=== PATIENT | female | born 1970 | race Caucasian/White ===

== ENCOUNTER 2016-04-11 08:43 | Outpatient (CLI) | payer SELFPAY | END 2016-04-11 08:44 | disposition home or self-care (01) | DX: E03.9 Hypothyroidism, unspecified (principal) ==

== ENCOUNTER 2016-04-25 12:29 | Outpatient (CLI) | payer SELFPAY | END 2016-04-25 12:30 | disposition home or self-care (01) | DX: N39.0 Urinary tract infection, site not specified (principal) ==

== ENCOUNTER 2016-07-25 21:08 | Emergency (ER) | payer SELFPAY ==
[2016-07-25] MEDS ORDERED: CEPHALEXIN 250 MG CAPSULE PO STA (21:52)
[2016-07-25] MEDS ORDERED: CEPHALEXIN 250 MG CAPSULE PO ONE (21:54)
== END 2016-07-25 22:15 | disposition home or self-care (01) ==
DX: S61.211A Laceration without foreign body of left index finger without damage to nail, initial encounter (principal); S66.121A Laceration of flexor muscle, fascia and tendon of left index finger at wrist and hand level, initial encounter; W26.8XXA Contact with other sharp object(s), not elsewhere classified, initial encounter; Y93.89 Activity, other specified; Y92.009 Unspecified place in unspecified non-institutional (private) residence as the place of occurrence of the external cause; R03.0 Elevated blood-pressure reading, without diagnosis of hypertension; F17.200 Nicotine dependence, unspecified, uncomplicated
CPT/HCPCS: 12001; 99283; A9270

== ENCOUNTER 2016-07-28 13:51 | Emergency (ER) | payer SELFPAY ==
[2016-07-28] MEDS ORDERED: DEXAMETHASONE 10 MG/ML VIAL PO STA (14:55)
[2016-07-28] MEDS ORDERED: DEXAMETHASONE 10 MG/ML VIAL ONE (15:03)
--- NOTE | 2016-07-28 15:03 | ED Physician Documentation ---
History of Present Illness - Stated complaint Stated Complaint: L LEG NUMBNESS,VERTIGO - Chief complaint Chief Complaint: General - History obtained from History obtained from: Patient, Family - History of Present Illness Timing: Yesterday - Additonal information Additional information: 46 y/o female lacerated her left index finger 4 days ago with injury to the flexor tendon and digital nerve. She was sutured here and has had follow up with the [place] [facility] [place]. She spent most of the day in the car and did a lot of crying with concerns about what was happening to her and concerns about her blood pressure after the warning she received here. She will have a surgery to repair the nerve at some time. She did go to work yesterday and did well there. Today she left work early with multiple complaints. She has some fogginess to her head and some lightheadedness and dizziness. She has had some numbness to the left leg over the distal lateral calf and over the dorsum between the 1st and 2nd toes. She does not have back pain. Review of Systems Constitutional: reports: Fatigue. denies: Fever, Chills Eyes: denies: Decreased vision Ears: denies: Ear pain Nose: reports: Rhinorrhea / runny nose, Congestion, Sinus pressure / pain Throat: denies: Sore throat Cardiac: denies: Chest pain / pressure, Palpitations Respiratory: denies: Dyspnea, Cough GI: denies: Abdominal Pain, Nausea, Vomiting : denies: Dysuria, Frequency Skin: denies: Rash Musculoskeletal: reports: Neck pain. denies: Back pain, Extremity pain Neurologic: reports: Numbness. 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 : None HEENT: None Psych: None Musculoskeletal: None Derm: None - Past Surgical History Past Surgical History: Yes /MECHANICAL DESIGN TECHNICIAN: Tubal ligation, Hysterectomy - Present Medications Home Medications: Ambulatory Orders Medication Instructions Recorded Confirmed Cephalexin [Keflex] 500 mg PO QID #40 capsule 07/25/16 07/28/16 - Allergies Allergies/Adverse Reactions: Allergies Allergy/AdvReac Type Severity Reaction Status Date / Time No Known Drug Allergies Allergy Verified 07/25/16 21:17 - Social History Does the pt smoke?: Yes Smoking Status: Current every day smoker PD ED PE NORMAL - Vitals Vital signs reviewed: Yes (hypertensive) - General General: Alert and oriented X 3, No acute distress, Well developed/nourished, Other (The patient is mildly anxious ) - HEENT HEENT: Atraumatic, PERRL, EOMI, Other (Both TM's are erythematous along the umbo ) - Neck Neck: Supple, no meningeal sign, No bony TTP - Cardiac Cardiac: RRR, No murmur - Respiratory Respiratory: No respiratory distress, Clear bilaterally - Abdomen Abdomen: Soft, Non tender - Back Back: No CVA TTP, No spinal TTP - Derm Derm: Normal color, Warm and dry, No rash - Extremities Extremities: No deformity, No edema, Other (The wound over the left index finger appears to be healing well without signs of inflamation. ) - Neuro Neuro: Alert and oriented X 3, director of enrollment 2-12 intact, Normal speech - Psych Psych: Normal mood, Normal affect Results - Vitals Vitals: Vital Signs - 24 hr 07/28/16 14:01 Temperature 36.6 C Heart Rate 63 Respiratory 20 Rate Blood Pressure 153/92 H O2 Saturation 99 Oxygen O2 Source Room air Procedures - IVC sono (time) 1450 Bedside IVC sono: IVC measures (cm) (1.04), IVC collapsed c insp (cm) (complete) , Dehydration (mild) PD MEDICAL DECISION MAKING - ED course Complexity details: reviewed old records, reviewed results, re-evaluated patient , considered differential, d/w patient, d/w family ED course: 46y/o female with a crying episode 2 days ago and anxiety has multiple complaints and some findings on exam. She has some mild inflammation to the umbo bilaterally and dizziness, she is also mildly dehydrated and has some sciatic symptoms. She is able to hydrate orally and she is given a dose of decadron for the OM and sciatica. She is reassured about her blood pressure and will get it rechecked when she is not under stress. Departure - Departure Disposition: 01 Home, Self Care Clinical Impression: Dehydration Sciatica Qualifiers: Laterality: left Qualified Code(s): M54.32 - Sciatica, left side Eustachian tube dysfunction Qualifiers: Laterality: bilateral Qualified Code(s): H69.83 - Other specified disorders of Eustachian tube, bilateral Condition: Stable Instructions: ED Dehydration, ED Sciatica Follow-Up: Khoa Hernández MD [Primary Care Provider] - Comments: Today in the Emergency Department your blood pressure was elevated. This can happen from the stress of the visit itself, from a current illness or circumstance or from uncontrolled hypertension. If you take blood pressure medications take your usual mediations, have your blood pressure re-checked in an appropriate setting and follow up any elevation with your primary care doctor.
[2016-07-28 15:21] VITALS: BP 115/61
== END 2016-07-28 15:21 | disposition home or self-care (01) ==
LOC: ED 13:51
DX: E86.0 Dehydration (principal); M54.32 Sciatica, left side; H69.83 Other specified disorders of Eustachian tube, bilateral; F17.200 Nicotine dependence, unspecified, uncomplicated
CPT/HCPCS: 99283

== ENCOUNTER 2016-09-21 08:18 | Outpatient (CLI) | payer SELFPAY ==
[2016-09-21 12:46] LABS: BASOPHILS # (AUTO) 0.1 10^3/uL (0.0-0.1); BASOPHILS % (AUTO) 1.3 %; EOSINOPHILS # (AUTO) 0.4 10^3/uL (0.0-0.7); EOSINOPHILS % (AUTO) 5.1 %; HCT - HEMATOCRIT 39.4 % (37.0-47.0); HGB - HEMOGLOBIN 13.3 g/dL (12.0-16.0); LYMPHOCYTES # (AUTO) 1.8 10^3/uL (1.5-3.5); LYMPHOCYTES % (AUTO) 20.8 %; MEAN CORPUSCULAR HGB CONC 33.8 g/dL (32.0-36.0); MEAN CORPUSCULAR VOLUME 94.6 fL (81.0-99.0); MEAN PLATELET VOLUME 8.6 fL (7.9-10.8); MONOCYTES # (AUTO) 0.7 10^3/uL (0.0-1.0); MONOCYTES % (AUTO) 8.3 %; NEUTROPHILS # (AUTO) 5.5 10^3/uL (1.5-6.6); NEUTROPHILS % (AUTO) 64.5 %; NUCLEATED RED BLOOD CELLS AUTO 0.2 /100WBC; RED BLOOD COUNT 4.17 10^6/uL (4.20-5.40); RED CELL DISTRIBUTION WIDTH 13.1 % (12.0-15.0); UNCORRECTED WHITE BLOOD COUNT 8.6 x10^3/uL; WHITE BLOOD COUNT 8.6 x10^3/uL (4.8-10.8)
[2016-09-21 13:56] LABS: ALBUMIN/GLOBULIN RATIO 1.3 (1.0-2.2); BUN - BLOOD UREA NITROGEN 19 mg/dL (6-20); CALCIUM 9.2 mg/dL (8.5-10.3); CARBON DIOXIDE - CO2 22 mmol/L (21-32); CHLORIDE 106 mmol/L (101-111); CHOL/HDL RATIO 4.6 (<4.4); CHOLESTEROL 233 mg/dL; GFR - MDRD 60 (>89); GLUCOSE 92 mg/dL (70-100); HDL CHOLESTEROL 51 mg/dL; POTASSIUM 4.5 mmol/L (3.5-5.0); SODIUM 135 mmol/L (135-145); TOTAL PROTEIN 7.4 g/dL (6.7-8.2); TRIGLYCERIDES 147 mg/dL; VLDL CHOLESTEROL 29 mg/dL
[2016-09-21 14:14] LABS: THYROID STIMULATING HORMONE 4.49 uIU/mL (0.34-5.60)
== END 2016-09-21 08:19 | disposition home or self-care (01) ==
LOC: LAB.N 08:18
PROVIDERS: ATTEND Physician Assistant
DX: E03.9 Hypothyroidism, unspecified (principal); E66.9 Obesity, unspecified
CPT/HCPCS: 36415; 80053; 80061; 84439; 84443; 85025

== ENCOUNTER 2017-05-23 11:30 | Outpatient (CLI) | payer SELFPAY ==
[2017-05-23 19:01] LABS: BILIRUBIN,URINE NEGATIVE (NEGATIVE); GLUCOSE, URINE (UA) NEGATIVE (NEGATIVE); KETONES,URINE (UA) NEGATIVE (NEGATIVE); LEUKOCYTE ESTERASE, URINE TRACE (NEGATIVE); NITRITE,URINE POSITIVE (NEGATIVE); OCCULT BLOOD,URINE MODERATE (NEGATIVE); PROTEIN,URINE NEGATIVE (NEGATIVE); UROBILINOGEN,URINE 0.2 (NORMAL) E.U./dL (NORMAL)
[2017-05-23 19:14] LABS: BACTERIA,URINE Many /HPF (None Seen); CLARITY,URINE CLOUDY (CLEAR); SQUAMOUS EPITHELIAL CELL,UR MANY Squamous (<= Few)
== END 2017-05-23 11:31 ==
LOC: LAB.R 11:30
PROVIDERS: ATTEND Nurse Practitioner
DX: N39.0 Urinary tract infection, site not specified (principal); R30.0 Dysuria
CPT/HCPCS: 81001; 87086

== ENCOUNTER 2017-06-07 08:00 | Outpatient (CLI) | payer SELFPAY ==
[2017-06-07 19:35] LABS: THYROID STIMULATING HORMONE 0.44 uIU/mL (0.34-5.60)
[2017-06-07 19:37] LABS: FREE T4 (FREE THYROXINE) 0.89 ng/dL (0.58-1.64)
== END 2017-06-07 08:01 ==
LOC: LAB.N 08:00
PROVIDERS: ATTEND Family Medicine
DX: E03.9 Hypothyroidism, unspecified (principal)
CPT/HCPCS: 36415; 84439; 84443

== ENCOUNTER 2017-07-12 12:18 | Outpatient (CLI) | payer SELFPAY ==
[2017-07-12] MEDS ORDERED: IOPAMIDOL-300 100 ML VIAL ONE (12:47)
--- NOTE | 2017-07-12 14:15 | CT Report ---
CT IVP: 07/12/2017 CLINICAL INDICATION: Hematuria. TECHNIQUE: Axial CT images of the abdomen and pelvis were obtained prior to and following 100 mL Isovue 300 intravenously, using split bolus technique. COMPARISON: Previous CT 10/18/2008. FINDINGS: Limited evaluation of the lung bases is unremarkable. ABDOMEN: On the unenhanced images, there is no evidence of nephrolithiasis or hydronephrosis. The kidneys demonstrate symmetric uptake and excretion of contrast. There is cortical thinning in the left kidney, likely representing scarring, and a left renal cyst is incidentally noted. No solid renal lesion or collecting system lesion is appreciated. The liver, spleen, pancreas and adrenal glands are unremarkable. The gallbladder is not dilated. No bowel dilatation, free gas, or free fluid is present. No abdominal adenopathy is seen. PELVIS: The distal ureters and urinary bladder appear unremarkable. No pelvic adenopathy or free fluid is present. The appendix is seen in the right lower quadrant, and is normal in caliber. Osseous structures demonstrate degenerative changes. IMPRESSION: LEFT RENAL CORTICAL THINNING, LIKELY REPRESENTING SCARRING FROM PREVIOUS INFECTION. INCIDENTAL LEFT RENAL CYST. NO EVIDENCE OF SOLID RENAL MASS OR COLLECTING SYSTEM MASS TO EXPLAIN HEMATURIA. CONSIDER CORRELATION WITH CYSTOSCOPY. CT DOSE REDUCTION STATEMENT In accordance with CT protocol optimization, one or more of the following dose reduction techniques were utilized for this exam: automated exposure control, adjustment of mA and/or KV based on patient size, or use of iterative reconstructive technique. TD: 07/12/2017 14:14
[2017-07-12] MEDS ORDERED: IOPAMIDOL-300 100 ML VIAL IVP ONE (16:09)
== END 2017-07-12 12:19 | disposition home or self-care (01) ==
LOC: DI 12:18
PROVIDERS: ATTEND Urology
DX: R31.9 Hematuria, unspecified (principal)
CPT/HCPCS: 74178; Q9967

== ENCOUNTER 2018-04-06 12:16 | Outpatient (CLI) | payer OTHER ==
[2018-04-06 19:39] LABS: THYROID STIMULATING HORMONE < 0.08 uIU/mL (0.34-5.60)
[2018-04-06 19:41] LABS: FREE T4 (FREE THYROXINE) 0.95 ng/dL (0.58-1.64)
[2018-04-06 20:07] LABS: FOLLICLE STIMULATING HORMONE 80.72 mIU/mL
== END 2018-04-06 23:59 | disposition home or self-care (01) ==
LOC: LAB.N 12:16
DX: N95.1 Menopausal and female climacteric states (principal); E03.9 Hypothyroidism, unspecified
CPT/HCPCS: 36415; 83001; 84439; 84443; 84481

== ENCOUNTER 2018-05-03 08:30 | Outpatient (CLI) | payer OTHER ==
--- NOTE | 2018-05-04 09:12 | Mammography Report ---
Reason: SCREENING MAMMO Procedure Date: 05/03/2018 Accession Number: [id number] / [id number] Procedure: MGN - Screening Mammo Dig Bilat CPT Code: FULL RESULT: EXAM: Screening Mammo Dig Bilat DATE: 05/03/2018 8:51 AM CLINICAL HISTORY: Screening encounter. No reported risk factors. TECHNIQUE: Bilateral CC and MLO views were obtained. COMPARISON: 09/25/2013 and 03/30/2012. FINDINGS: The breasts demonstrate scattered fibroglandular densities bilaterally. No suspicious masses, clustered microcalcifications, or regions of architectural distortion are identified. IMPRESSION: Negative examination RECOMMENDATION: Routine annual screening unless otherwise clinically indicated. BIRADS CATEGORY 1: Negative STANDARD QUALIFYING STATEMENTS: 1. This examination was reviewed with the aid of Computer-Aided Detection (CAD). 2. A negative or benign imaging report should not delay biopsy if clinically suspicious findings are present. Consider surgical consultation if warrented. More than 5% of cancers are not identified by imaging. 3. Dense breasts may obscure an underlying neoplasm.
== END 2018-05-03 08:31 | disposition home or self-care (01) ==
LOC: DI.N 08:30
DX: Z12.31 Encounter for screening mammogram for malignant neoplasm of breast (principal)
CPT/HCPCS: 77067

== ENCOUNTER 2018-06-18 08:00 | Outpatient (CLI) | payer OTHER ==
[2018-06-18 12:56] LABS: BASOPHILS # (AUTO) 0.1 10^3/uL (0.0-0.1); EOSINOPHILS # (AUTO) 0.2 10^3/uL (0.0-0.7); EOSINOPHILS % (AUTO) 3.7 %; HGB - HEMOGLOBIN 12.7 g/dL (12.0-16.0); LYMPHOCYTES # (AUTO) 1.3 10^3/uL (1.5-3.5); LYMPHOCYTES % (AUTO) 24.2 %; MEAN CORPUSCULAR HEMOGLOBIN 30.6 pg (27.0-31.0); MEAN CORPUSCULAR HGB CONC 33.9 g/dL (32.0-36.0); MEAN CORPUSCULAR VOLUME 90.2 fL (81.0-99.0); MEAN PLATELET VOLUME 9.1 fL (7.9-10.8); MONOCYTES # (AUTO) 0.4 10^3/uL (0.0-1.0); MONOCYTES % (AUTO) 6.9 %; NEUTROPHILS # (AUTO) 3.4 10^3/uL (1.5-6.6); NEUTROPHILS % (AUTO) 64.2 %; PLT - PLATELET COUNT 222 10^3/uL (130-450); RED BLOOD COUNT 4.14 10^6/uL (4.20-5.40); RED CELL DISTRIBUTION WIDTH 13.1 % (12.0-15.0); WHITE BLOOD COUNT 5.3 x10^3/uL (4.8-10.8)
[2018-06-18 13:16] LABS: ALBUMIN 4.1 g/dL (3.2-5.5); ALBUMIN/GLOBULIN RATIO 1.3 (1.0-2.2); ALKALINE PHOSPHATASE 51 IU/L (42-121); ALT ALANINE AMINOTRANSFERASE 24 IU/L (10-60); AST ASPARTATE AMINOTRANSFERASE 18 IU/L (10-42); BUN - BLOOD UREA NITROGEN 14 mg/dL (6-20); CALCIUM 9.3 mg/dL (8.5-10.3); CARBON DIOXIDE - CO2 28 mmol/L (21-32); CHLORIDE 103 mmol/L (101-111); CHOL/HDL RATIO 3.9 (<4.4); CHOLESTEROL 203 mg/dL; CREATININE 0.7 mg/dL (0.4-1.0); GFR - MDRD 89 (>89); GLUCOSE 94 mg/dL (70-100); HDL CHOLESTEROL 52 mg/dL; LDL CHOLESTEROL,CALCULATED 141 mg/dL; LDL/HDL RATIO 2.7 (<4.4); SODIUM 138 mmol/L (135-145); TOTAL PROTEIN 7.2 g/dL (6.7-8.2); VLDL CHOLESTEROL 10 mg/dL
== END 2018-06-18 23:59 | disposition home or self-care (01) ==
LOC: LAB.N 08:00
PROVIDERS: ATTEND Nurse Practitioner Gerontology
DX: Z13.9 Encounter for screening, unspecified (principal); E03.9 Hypothyroidism, unspecified
CPT/HCPCS: 36415; 80053; 80061; 83721; 84443; 85025

== ENCOUNTER 2018-12-19 12:43 | Outpatient (CLI) | payer OTHER ==
--- NOTE | 2018-12-19 13:10 | XRAY Report ---
Reason: ELBOW PAIN LEFT Procedure Date: 12/19/2018 Accession Number: [id number] / [id number] Procedure: XRN - Elbow 3 View LT CPT Code: FULL RESULT: EXAM: LEFT ELBOW RADIOGRAPHY EXAM DATE: 12/19/2018 01:00 PM. CLINICAL HISTORY: Left elbow pain. Burning feeling for 2 months. Unable to lift objects, drink coffee, use hairbrush etc. COMPARISON: None. TECHNIQUE: 3 views. FINDINGS: Bones: Normal. No fractures or bone lesions. Joints: Normal. No effusion. No subluxation. Soft Tissues: Normal. No soft tissue swelling. IMPRESSION: Normal elbow radiography. RADIA
== END 2018-12-19 12:44 | disposition home or self-care (01) ==
LOC: DI.N 12:43
PROVIDERS: ATTEND Family Medicine
DX: M25.522 Pain in left elbow (principal)

== ENCOUNTER 2019-01-08 13:18 | Inpatient (IN) | payer OTHER ==
--- NOTE | 2019-01-08 13:31 | ED Physician Documentation ---
History of Present Illness - Stated complaint Stated Complaint: ABD PX - Chief complaint Chief Complaint: Abd Pain - Additonal information Additional information: This is a 48-year-old female with a history of a tubal ligation and hysterectomy who presents with epigastric pain that been present for 4 days. She states this began after eating breakfast around 4 days ago, it has progressively worsened, and now she has pain more in her right upper quadrant that radiates towards her back. She is still has her gallbladder, denies any history of biliary problems, she does have a hiatal hernia which she states is asymptomatic and she did not take any medications for this. She has had nausea and vomiting, she denies dysuria or lower abdominal pain. She drinks occasionally, but none recently. She denies binge drinking. She denies any history of hepatitis, no IV drug use. She does have a history of tattoos these were done at parlors and she has had no new tattoos recently. She denies sick contacts, and she andher her been eating the same foods. She takes occasional Tylenol, but never more than recommended by the bottle, and only several times in the last several weeks. 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: Tubal ligation, Hysterectomy - Present Medications Home Medications: Ambulatory Orders Medication Instructions Recorded Confirmed Cephalexin [Keflex] 500 mg PO QID #40 capsule 07/25/16 07/28/16 - Allergies Allergies/Adverse Reactions: Allergies Allergy/AdvReac Type Severity Reaction Status Date / Time No Known Drug Allergies Allergy Verified 07/25/16 21:17 - Social History Does the pt smoke?: Yes Smoking Status: Current every day smoker PD ED PE NORMAL - Vitals Vital signs reviewed: Yes - General General: Alert and oriented X 3 - HEENT HEENT: Atraumatic - Neck Neck: Supple, no meningeal sign - Cardiac Cardiac: RRR - Respiratory Respiratory: No respiratory distress - Abdomen Abdomen: Other (Soft, non-distended. Tender to palpation in the epigastrium and RUQ, negative dominguez sign and no guarding. No lower abdominal tenderness.) - Derm Derm: Warm and dry - Neuro Neuro: Alert and oriented X 3 Results - Vitals Vitals: Vital Signs - 24 hr 01/08/19 01/08/19 13:25 15:27 Temperature 36.9 C Heart Rate 66 72 Respiratory 18 18 Rate Blood Pressure 125/99 H 124/96 H O2 Saturation 100 100 Oxygen O2 Source Room air - EKG (time done) 14:10 Other comments: Other comments - Labs Labs: Laboratory Tests 01/08/19 01/08/19 01/08/19 13:35 13:35 13:35 WBC RBC Hgb Hct MCV MCH MCHC RDW Plt Count MPV Neut # (Auto) Lymph # (Auto) Caroline # (Auto) Eos # (Auto) Baso # (Auto) Absolute Nucleated RBC Nucleated RBC % PT INR Sodium Potassium Chloride Carbon Dioxide Anion Gap BUN Creatinine Estimated GFR (MDRD) Glucose Calcium Total Bilirubin GGT AST ALT Alkaline Phosphatase Total Creatine Kinase Total Protein Albumin Globulin Albumin/Globulin Ratio Lipase Urine Color DARK YELLOW Urine Clarity CLEAR Urine pH 6.0 Ur Specific [place] 1.020 1.020 Urine Protein NEGATIVE Urine Glucose (UA) NEGATIVE Urine Ketones NEGATIVE Urine Occult Blood MODERATE H Urine Nitrite NEGATIVE Urine Bilirubin NEGATIVE Urine Urobilinogen 2 H Ur Leukocyte Esterase NEGATIVE Urine RBC 0-5 Urine WBC 0-3 Ur Squamous Epith Cells RARE Squamous Urine Bacteria Few Ur Microscopic Review INDICATED Urine Culture Comments NOT INDICATED Urine HCG, Qual NEGATIVE Urine Opiates Screen NEGATIVE Ur Oxycodone Screen NEGATIVE Urine Methadone Screen NEGATIVE Ur Propoxyphene Screen NEGATIVE Ur Barbiturates Screen NEGATIVE Ur Tricyclics Screen NEGATIVE Ur Phencyclidine Scrn NEGATIVE Ur Amphetamine Screen NEGATIVE U Methamphetamines Scrn NEGATIVE U Benzodiazepines Scrn NEGATIVE Urine Cocaine Screen NEGATIVE U Cannabinoids Screen NEGATIVE 01/08/19 01/08/19 01/08/19 14:05 14:05 14:05 WBC 4.2 L RBC 4.36 Hgb 12.7 Hct 40.2 MCV 92.2 MCH 29.1 MCHC 31.6 L RDW 13.2 Plt Count 164 MPV 9.2 Neut # (Auto) 2.5 Lymph # (Auto) 1.0 L Caroline # (Auto) 0.5 Eos # (Auto) 0.1 Baso # (Auto) 0.0 Absolute Nucleated RBC 0.00 Nucleated RBC % 0.0 PT 12.3 INR 1.1 Sodium 138 Potassium 4.0 Chloride 101 Carbon Dioxide 27 Anion Gap 10.0 BUN 14 Creatinine 0.7 Estimated GFR (MDRD) 89 Glucose 106 H Calcium 8.8 Total Bilirubin 2.2 H GGT AST 1304 H ALT 3816 H Alkaline Phosphatase 163 H Total Creatine Kinase Total Protein 7.2 Albumin 3.9 Globulin 3.3 Albumin/Globulin Ratio 1.2 Lipase 43 Urine Color Urine Clarity Urine pH Ur Specific [place] Urine Protein Urine Glucose (UA) Urine Ketones Urine Occult Blood Urine Nitrite Urine Bilirubin Urine Urobilinogen Ur Leukocyte Esterase Urine RBC Urine WBC Ur Squamous Epith Cells Urine Bacteria Ur Microscopic Review Urine Culture Comments Urine HCG, Qual Urine Opiates Screen Ur Oxycodone Screen Urine Methadone Screen Ur Propoxyphene Screen Ur Barbiturates Screen Ur Tricyclics Screen Ur Phencyclidine Scrn Ur Amphetamine Screen U Methamphetamines Scrn U Benzodiazepines Scrn Urine Cocaine Screen U Cannabinoids Screen 01/08/19 01/08/19 14:05 14:05 WBC RBC Hgb Hct MCV MCH MCHC RDW Plt Count MPV Neut # (Auto) Lymph # (Auto) Caroline # (Auto) Eos # (Auto) Baso # (Auto) Absolute Nucleated RBC Nucleated RBC % PT INR Sodium Potassium Chloride Carbon Dioxide Anion Gap BUN Creatinine Estimated GFR (MDRD) Glucose Calcium Total Bilirubin GGT 166 H AST ALT Alkaline Phosphatase Total Creatine Kinase 43 Total Protein Albumin Globulin Albumin/Globulin Ratio Lipase Urine Color Urine Clarity Urine pH Ur Specific [place] Urine Protein Urine Glucose (UA) Urine Ketones Urine Occult Blood Urine Nitrite Urine Bilirubin Urine Urobilinogen Ur Leukocyte Esterase Urine RBC Urine WBC Ur Squamous Epith Cells Urine Bacteria Ur Microscopic Review Urine Culture Comments Urine HCG, Qual Urine Opiates Screen Ur Oxycodone Screen Urine Methadone Screen Ur Propoxyphene Screen Ur Barbiturates Screen Ur Tricyclics Screen Ur Phencyclidine Scrn Ur Amphetamine Screen U Methamphetamines Scrn U Benzodiazepines Scrn Urine Cocaine Screen U Cannabinoids Screen - Rads (name of study) US RUQ Radiology: Other PD MEDICAL DECISION MAKING - ED course Complexity details: considered differential (Cholecystitis, hepatitis, PUD, gastritis, biliary colic, choledocolithiasis, dehydration) ED course: Labs show highly elevated AST and ALT as well as moderate Alkaline Phosphatase elevation. Bilirubin also slightly elevated. INR and WBC normal, Lipase normal. RUQ US shows no signs of cholecystitis, and CBD of 5mm, which is about normal for patient's age. She has no history of heavy alcohol or acetaminophen use, or obvious exposure to other liver toxins. She is low risk for most viral hepatidides, but infectious/viral hepatitis is possible. I spoke with Dr. Camacho of [facility], who recommended MRI, work up for infectious, autoimmune causes, Utox, and discussed that they do not have ERCP so she would need transfer elsewhere if she had choledocolithiasis. Patient was admitted for further workup of her hepatitis. She was given 2mg of morphine for discomfort. I updated patient with the plan, she remains non-toxic with normal vital signs at the time of admission. Departure - Departure Disposition: [facility] Clinical Impression: Hepatitis Discharge Date/Time: 01/08/19 18:39
[2019-01-08 13:49] LABS: GLUCOSE, URINE (UA) NEGATIVE (NEGATIVE); KETONES,URINE (UA) NEGATIVE (NEGATIVE); LEUKOCYTE ESTERASE, URINE NEGATIVE (NEGATIVE); NITRITE,URINE NEGATIVE (NEGATIVE); OCCULT BLOOD,URINE MODERATE (NEGATIVE); PROTEIN,URINE NEGATIVE (NEGATIVE); UROBILINOGEN,URINE 2 E.U./dL (NORMAL)
[2019-01-08 13:54] LABS: CLARITY,URINE CLEAR (CLEAR)
[2019-01-08 13:55] LABS: BILIRUBIN,URINE NEGATIVE (NEGATIVE); ICTOTEST,URINE NEGATIVE
[2019-01-08 14:11] LABS: BACTERIA,URINE Few /HPF (None Seen); RBC,URINE 0-5 /HPF (0-5); SQUAMOUS EPITHELIAL CELL,UR RARE Squamous (<= Few)
[2019-01-08 14:17] LABS: BASOPHILS % (AUTO) 0.7 %; EOSINOPHILS # (AUTO) 0.1 10^3/uL (0.0-0.7); EOSINOPHILS % (AUTO) 3.4 %; HGB - HEMOGLOBIN 12.7 g/dL (12.0-16.0); LYMPHOCYTES % (AUTO) 24.7 %; MEAN CORPUSCULAR HEMOGLOBIN 29.1 pg (27.0-31.0); MEAN CORPUSCULAR HGB CONC 31.6 g/dL (32.0-36.0); MEAN CORPUSCULAR VOLUME 92.2 fL (81.0-99.0); MEAN PLATELET VOLUME 9.2 fL (7.9-10.8); MONOCYTES # (AUTO) 0.5 10^3/uL (0.0-1.0); MONOCYTES % (AUTO) 11.8 %; NEUTROPHILS # (AUTO) 2.5 10^3/uL (1.5-6.6); NEUTROPHILS % (AUTO) 58.9 %; PLT - PLATELET COUNT 164 10^3/uL (130-450); RED BLOOD COUNT 4.36 10^6/uL (4.20-5.40); RED CELL DISTRIBUTION WIDTH 13.2 % (12.0-15.0); WHITE BLOOD COUNT 4.2 x10^3/uL (4.8-10.8)
[2019-01-08 14:53] LABS: ALBUMIN 3.9 g/dL (3.2-5.5); ALBUMIN/GLOBULIN RATIO 1.2 (1.0-2.2); BILIRUBIN,TOTAL 2.2 mg/dL (0.2-1.0); CALCIUM 8.8 mg/dL (8.5-10.3); CREATININE 0.7 mg/dL (0.4-1.0); TOTAL PROTEIN 7.2 g/dL (6.7-8.2)
--- NOTE | 2019-01-08 15:21 | Ultrasound Report ---
Reason: epigastric/RUQ pain, eval for biliary pathology Procedure Date: 01/08/2019 Accession Number: [id number] / [id number] Procedure: US - Abdomen Limited CPT Code: Final Report FULL RESULT: EXAM: ABDOMEN ULTRASOUND LIMITED, RUQ EXAM DATE: 01/08/2019 02:51 PM. CLINICAL HISTORY: Epigastric/RUQ pain, eval for biliary pathology. COMPARISON: None. TECHNIQUE: Real-time scanning was performed with static images obtained. FINDINGS: Liver: The liver is diffusely increased in echogenicity with no focal lesions. 15.2 cm. Main portal vein flow: Hepatopetal. Gallbladder: Normal. No stones, wall thickening, or sonographic Hardin's sign. Biliary System: CBD measures 5 mm. No intrahepatic or extrahepatic ductal dilatation. Other: The right kidney measures 13.4 cm in length. No hydronephrosis or renal calculus. IMPRESSION: 1. Hepatic parenchymal disease (likely fatty liver). No focal lesions. 2. No cholelithiasis or cholecystitis. RADIA
[2019-01-08 16:24] LABS: INR 1.1 (0.8-1.2); PT - PROTHROMBIN TIME 12.3 secs (9.9-12.6)
[2019-01-08] MEDS ORDERED: MORPHINE 2 MG/ML CARPUJECT IVP STA (17:14)
[2019-01-08] MEDS ORDERED: ONDANSETRON 4 MG/2 ML VIAL IVP PRN ×2 (17:27→18:33)
[2019-01-08] MEDS ORDERED: PROCHLORPERAZINE 10 MG/2 ML VIAL IVP PRN (17:27)
[2019-01-08] MEDS ORDERED: MORPHINE 2 MG/ML CARPUJECT IVP PRN (17:27)
[2019-01-08 18:51] LABS: MUDS CUTOFF CONCENTRATIONS CUTOFF CONC BELOW:
[2019-01-08 19:02] LABS: HCG UR QUAL NEGATIVE
[2019-01-08 19:19] LABS: AMPHETAMINE SCREEN,URINE NEGATIVE (NEGATIVE); BENZODIAZEPINES SCREEN, URINE NEGATIVE (NEGATIVE); COCAINE SCREEN URINE NEGATIVE (NEGATIVE); METHADONE SCREEN, URINE NEGATIVE (NEGATIVE); METHAMPHETAMINES SCREEN, URINE NEGATIVE (NEGATIVE); OPIATE SCREEN, URINE NEGATIVE (NEGATIVE); OXYCODONE SCREEN, URINE NEGATIVE (NEGATIVE); PROPOXYPHENE SCREEN, URINE NEGATIVE (NEGATIVE); TRICYCLIC ANTIDEPRESSANT,URINE NEGATIVE (NEGATIVE)
[2019-01-08] MEDS: D5NS W/20 MEQ KCL 1,000 ML IV SCH (19:29)
[2019-01-08] MEDS: SODIUM CHLORIDE FLUSH 0.9% 10 ML SYRINGE IVP PRN ×2 (19:30→21:31)
--- NOTE | 2019-01-08 19:42 | HISTORY & PHYSICAL EXAMINATION ---
Chief Complaint - Chief Complaint Chief Complaint: epigastric pain History of Present Illness - Admitted From Admitted From:: [facility] ED - History Obtained From Records Reviewed: yes History obtained from: patient - History of Present Illness HPI Comment/Other: Patient is a 48 y/o female with History of hypothyroidism taking synthroid, who presented to the ED with complain of epigastric pain. Her symptoms started on 4 days ago with a general feeling of fatigue/weakness and aching all over. The epigastric pain and nausea came on the following day. She was unable to eat or carry out her day's activities as a result. 3 days after onset, she started having radiation to the right side and back. She denied chest pain, dyspnea or fever. In the ED she was found to have an AST of 1304, ALT 3816, Alk Phos 163 and TBili of 2.2. As a result she was presented for admission for further work up. She denies any recent travel or injuries. She rarely takes tylenol but took 650mg 3 days ago. She denies IV drug use. She drinks socially. She does not take any herbal supplements. Her daughter had a "stomach virus" recently. She has been on a keto-diet (no carbs, high fat and protein) for the past 4 months. However on she had a piece of cake. She also ate deer meat on the same day. It was a deer they had hunted down with a bow ad arrow. The day after Hall she had pizza. 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 mother: hypothyroidism. grandmother: hypothyroidism. grandfathers: cardiac disease unspecified. daughterr: Type I Diabetes mellitus Social History Notes: She reports smoking and or drinking only socially when she is out with friend. She will most likely do so on fridays at the end of a work week. She denies any illicit drug use. 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 - POLST Patient has POLST: No POLST Status: Full Code Meds/Allgy - Home Medications Home Medications: Ambulatory Orders Medication Instructions Recorded Confirmed Cephalexin [Keflex] 500 mg PO QID #40 capsule 07/25/16 07/28/16 - Allergies Allergies/Adverse Reactions: Allergies Allergy/AdvReac Type Severity Reaction Status Date / Time No Known Drug Allergies Allergy Verified 07/25/16 21:17 Review of Systems - Constitutional Constitutional: reports: Fatigue, Malaise, Weakness, Poor appetite. denies: Fever, Chills, Diaphoresis - Eyes Eyes: denies: Pain, Vision loss - Ears, Nose & Throat Ears, Nose & Throat: denies: Ear pain, Hoarseness - Cardiovascular Cariovascular: denies: Irregular heart rate, Palpitations, Chest pain, Edema, Lightheadedness, Syncope, Exertional dyspnea - Respiratory Respiratory: denies: Cough, Sputum production, Wheezing, SOB at rest, SOB with exertion - Gastrointestinal Gastrointestinal: reports: Abdominal pain, Nausea, Vomiting, Poor appetite. denies: Abdominal distention, Constipation, Diarrhea, Black stools, Coffee grounds emesis, Reflux/heartburn - Genitourinary Genitourinary: denies: Dysuria, Frequency, Urgency, Hematuria - Musculoskeletal Musculoskeletal: reports: Back pain. denies: Muscle pain - Integumentary Integumentary: denies: Rash, Pruritis, Lesions - Neurological Neurological: reports: General weakness - Psychiatric Psychiatric: denies: Depression, Anxiety - Endocrine Endocrine: denies: Polyuria, Polydypsia - Hematologic/Lymphatic Hematologic/Lymphatic: denies: Anemia, Bruising Prior Level of Functionality: She is independent of activities of daily living. Exam - Vital Signs Vital Signs: Vital Signs x48h Temp Pulse Pulse Resp BP BP Pulse Ox 01/08/19 18:34 36.6 C 62 18 106/73 100 01/08/19 17:22 70 18 122/78 100 01/08/19 15:27 72 18 124/96 H 100 01/08/19 13:25 36.9 C 66 18 125/99 H 100 - Physical Exam General Appearance: positive: Alert, Mild distress Eyes Bilateral: positive: Normal inspection, PERRL, EOMI ENT: positive: ENT inspection nml, No signs of dehydration Neck: positive: Nml inspection, No JVD, Trachea midline Respiratory: positive: Chest non-tender, No respiratory distress, Breath sounds nml. negative: Wheezes, Rales, Rhonchi Cardiovascular: positive: Regular rate & rhythm Abdomen: positive: Nml bowel sounds, Tenderness Back: positive: Nml inspection Skin: positive: Color nml, No rash, Warm Extremities: positive: Non-tender, Full ROM, Nml appearance, No pedal edema Neurologic/Psychiatric: positive: Oriented x3, CN's nml (2-12), Motor nml, Sensation nml, Mood/affect nml Conclusion/Plan - Problem List (1) Hepatitis Conclusion/Plan: Etiology undetermined DDx includes Viral: Acute Hepatitis Panel pending. Will also add a Film Array Autoimmune: SPEP, MIRLANDE, ASMA, AMA ordered Ceruloplasmin, Fe/TIBC pending Lipid panel, Cortisol Abdominal MRI pending. Will trend CMP Zofran for nausea and vomiting Pain management with morphine Clear liquid diet IV hydration with D5+NS+20 mEq KCl (2) Hypothyroidism Conclusion/Plan: On synthroid. Checking TSH and T3/T4 - Lab Results Fish Bones: 01/08/19 14:05 01/08/19 14:05 Core Measures - Anticipated LOS I expect patient to be DC'd or transferred within 96 hours.: Yes - DVT/VTE - Prophylaxis VTE/DVT Device ordered at admit?: Yes
[2019-01-08] MEDS: FAMOTIDINE 20 MG/2 ML VIAL IVP SCH (21:31)
[2019-01-09] MEDS: D5NS W/20 MEQ KCL 1,000 ML IV SCH (05:13)
[2019-01-09] MEDS: SODIUM CHLORIDE FLUSH 0.9% 10 ML SYRINGE IVP SCH ×3 (05:15→18:22)
[2019-01-09 05:35] LABS: BASOPHILS % (AUTO) 0.5 %; EOSINOPHILS # (AUTO) 0.1 10^3/uL (0.0-0.7); EOSINOPHILS % (AUTO) 3.7 %; HGB - HEMOGLOBIN 12.6 g/dL (12.0-16.0); LYMPHOCYTES # (AUTO) 1.1 10^3/uL (1.5-3.5); LYMPHOCYTES % (AUTO) 30.1 %; MEAN CORPUSCULAR HEMOGLOBIN 30.1 pg (27.0-31.0); MEAN CORPUSCULAR HGB CONC 32.2 g/dL (32.0-36.0); MEAN CORPUSCULAR VOLUME 93.3 fL (81.0-99.0); MEAN PLATELET VOLUME 9.3 fL (7.9-10.8); MONOCYTES # (AUTO) 0.4 10^3/uL (0.0-1.0); MONOCYTES % (AUTO) 10.7 %; NEUTROPHILS # (AUTO) 2.1 10^3/uL (1.5-6.6); NEUTROPHILS % (AUTO) 54.7 %; PLT - PLATELET COUNT 160 10^3/uL (130-450); RED BLOOD COUNT 4.19 10^6/uL (4.20-5.40); RED CELL DISTRIBUTION WIDTH 13.3 % (12.0-15.0); WHITE BLOOD COUNT 3.8 x10^3/uL (4.8-10.8)
[2019-01-09 05:59] LABS: CHOL/HDL RATIO 5.2 (<4.4); CHOLESTEROL 197 mg/dL; HDL CHOLESTEROL 38 mg/dL; LDL CHOLESTEROL,CALCULATED 144 mg/dL; LDL/HDL RATIO 3.8 (<4.4); VLDL CHOLESTEROL 15 mg/dL
[2019-01-09 06:04] LABS: THYROID STIMULATING HORMONE 24.7 uIU/mL (0.34-5.60)
[2019-01-09 06:05] LABS: FREE T4 (FREE THYROXINE) 0.78 ng/dL (0.58-1.64)
[2019-01-09 06:17] LABS: ALBUMIN 3.5 g/dL (3.2-5.5); ALBUMIN/GLOBULIN RATIO 1.2 (1.0-2.2); BILIRUBIN,TOTAL 2.7 mg/dL (0.2-1.0); CALCIUM 8.6 mg/dL (8.5-10.3); CREATININE 0.7 mg/dL (0.4-1.0); TOTAL PROTEIN 6.5 g/dL (6.7-8.2)
[2019-01-09] MEDS ORDERED: LEVOTHYROXINE 25 MCG TABLET PO SCH ×2 (08:00→10:00)
[2019-01-09] MEDS: FAMOTIDINE 20 MG/2 ML VIAL IVP SCH ×2 (08:57→21:05)
--- NOTE | 2019-01-09 12:37 | PROVIDER PROGRESS NOTE ---
Assessment/Plan - Problem List (1) Transaminitis Assessment/Plan: pt report she she feel better, she report she tolerate low sat diet, she did not have N/V. she report she begin to have normal yellow color urine. she report she had orange color urine before. pt report to me and pharmacy she recently only ate artificial only fatty diet. pt had fatty liver in US of abdomen. pt report she drunk alcohol occasionally, mainly on Monday. she report she did not travel. Nobody in her family have any hepatitis. pt had normal liver enzyme test in 06/2018. pt's lipid panel, cortisol are unremarkable. Hepatitis panel, other autoimmune test are pending now. continue hold any hepatic toxical agents continue IVF of NS at 100cc/h low fatty diet, continue continue liver enzyme test, lab monitor, vital monitor (2) Hypothyroidism Conclusion/Plan: pt had elevated TSH at 25, but at low normal arrange Free T4. pt took 88mcg synthroid increase to 100mcg synthroid, followup PCP continue management. - Current Meds Current Meds: Current Medications Generic Name Dose Route Start Last Admin Trade Name Nir PRN Reason Stop Dose Admin Famotidine 20 mg 01/08/19 21:00 01/09/19 08:57 Pepcid IVP 20 mg BID MITUL Administration Potassium Chloride/Dextrose/Sod Cl 1,000 mls @ 100 mls/hr 01/08/19 18:00 01/09/19 05:13 IV 100 mls/hr .Q10H MITUL Administration Sodium Chloride 10 ml 01/08/19 17:27 01/08/19 21:31 Normal Saline Flush 0.9% IVP 10 ml PRN PRN Administration NEEDED PER PROVIDER ORDERS Sodium Chloride 10 ml 01/09/19 01:00 01/09/19 08:57 Normal Saline Flush 0.9% IVP 10 ml 0100,0900,1700 MITUL Administration - Lab Result Fish Bone Diagrams: 01/09/19 05:20 01/09/19 05:20 - Additional Planning My Orders: My Active Orders 01/09/19 11:53 Nutrition Consult [CONS] Routine 01/09/19 Lunch Low Fat Diet [DIET] 01/10/19 07:00 Levothyroxine [Synthroid] 100 mcg PO QDAC Subjective - Subjective Patient Reports: Feeling Better Objective Vital Signs: Vital Signs - 24 hr 01/08/19 01/08/19 01/08/19 13:25 15:27 17:22 Temperature 36.9 C Heart Rate 66 72 70 Heart Rate [ Brachial] Respiratory 18 18 18 Rate Blood Pressure 125/99 H 124/96 H 122/78 Blood Pressure [Left Brachial artery] O2 Saturation 100 100 100 01/08/19 01/08/19 01/09/19 18:34 23:40 08:05 Temperature 36.6 C 36.6 C 36.9 C Heart Rate Heart Rate [ 62 52 L 110 H Brachial] Respiratory 18 16 16 Rate Blood Pressure Blood Pressure 106/73 93/58 L 103/72 [Left Brachial artery] O2 Saturation 100 99 99 Oxygen O2 Source Room air I&O (Last 24 Hrs): Intake and Output Totals x24h 01/07/19 01/08/19 01/09/19 23:59 23:59 23:59 Intake Total 378.114 3678.333 Balance 502.473 5597.333 General: Alert HEENT: Atraumatic Neck: Supple Lymphatic: no adenopathy Neuro: Alert, Oriented Times 3 Cardiovascular: Regular rate, Normal S1, Normal S2 Respiratory: Chest non-tender, No respiratory distress, Breath sounds nml Abdomen: Normal bowel sounds, Soft - Results Results: Laboratory Results WBC 3.8 x10^3/uL (4.8-10.8) L 01/09/19 05:20 RBC 4.19 10^6/uL (4.20-5.40) L 01/09/19 05:20 Hgb 12.6 g/dL (12.0-16.0) 01/09/19 05:20 Hct 39.1 % (37.0-47.0) 01/09/19 05:20 MCV 93.3 fL (81.0-99.0) 01/09/19 05:20 MCH 30.1 pg (27.0-31.0) 01/09/19 05:20 MCHC 32.2 g/dL (32.0-36.0) 01/09/19 05:20 RDW 13.3 % (12.0-15.0) 01/09/19 05:20 Plt Count 160 10^3/uL (130-450) 01/09/19 05:20 MPV 9.3 fL (7.9-10.8) 01/09/19 05:20 Neut # (Auto) 2.1 10^3/uL (1.5-6.6) 01/09/19 05:20 Lymph # (Auto) 1.1 10^3/uL (1.5-3.5) L 01/09/19 05:20 Toole # (Auto) 0.4 10^3/uL (0.0-1.0) 01/09/19 05:20 Eos # (Auto) 0.1 10^3/uL (0.0-0.7) 01/09/19 05:20 Baso # (Auto) 0.0 10^3/uL (0.0-0.1) 01/09/19 05:20 Absolute Nucleated RBC 0.00 x10^3/uL 01/09/19 05:20 Nucleated RBC % 0.0 /100WBC 01/09/19 05:20 PT 12.3 secs (9.9-12.6) 01/08/19 14:05 INR 1.1 (0.8-1.2) 01/08/19 14:05 Sodium 139 mmol/L (135-145) 01/09/19 05:20 Potassium 4.0 mmol/L (3.5-5.0) 01/09/19 05:20 Chloride 105 mmol/L (101-111) 01/09/19 05:20 Carbon Dioxide 27 mmol/L (21-32) 01/09/19 05:20 Anion Gap 7.0 (6-13) 01/09/19 05:20 BUN 9 mg/dL (6-20) 01/09/19 05:20 Creatinine 0.7 mg/dL (0.4-1.0) 01/09/19 05:20 Estimated GFR (MDRD) 89 (>89) 01/09/19 05:20 Glucose 109 mg/dL (70-100) H 01/09/19 05:20 Calcium 8.6 mg/dL (8.5-10.3) 01/09/19 05:20 Iron 179 ug/dL (28-170) H 01/09/19 05:20 TIBC 344 ug/dL (250-450) 01/09/19 05:20 % Saturation 52 % (20-50) H 01/09/19 05:20 Transferrin 246 mg/dL (192-382) 01/09/19 05:20 Total Bilirubin 2.7 mg/dL (0.2-1.0) H 01/09/19 05:20 GGT 166 IU/L (8-38) H 01/08/19 14:05 AST 1099 IU/L (10-42) H 01/09/19 05:20 ALT 3422 IU/L (10-60) H 01/09/19 05:20 Alkaline Phosphatase 151 IU/L (42-121) H 01/09/19 05:20 Total Creatine Kinase 43 IU/L (22-269) 01/08/19 14:05 Total Protein 6.5 g/dL (6.7-8.2) L 01/09/19 05:20 Albumin 3.5 g/dL (3.2-5.5) 01/09/19 05:20 Globulin 3.0 g/dL (2.1-4.2) 01/09/19 05:20 Albumin/Globulin Ratio 1.2 (1.0-2.2) 01/09/19 05:20 Triglycerides 74 mg/dL (-149) 01/09/19 05:20 Cholesterol 197 mg/dL (-199) 01/09/19 05:20 LDL Cholesterol, Calc 144 mg/dL (-129) H 01/09/19 05:20 VLDL Cholesterol 15 mg/dL 01/09/19 05:20 HDL Cholesterol 38 mg/dL (60-) L 01/09/19 05:20 LDL/HDL Ratio 3.8 (<4.4) 01/09/19 05:20 Cholesterol/HDL Ratio 5.2 (<4.4) 01/09/19 05:20 Lipase 43 U/L (22-51) 01/08/19 14:05 TSH 24.70 uIU/mL (0.34-5.60) H 01/09/19 05:20 Free T4 0.78 ng/dL (0.58-1.64) 01/09/19 05:20 Free T3 pg/mL 2.36 pg/mL (2.5-3.9) L 01/09/19 05:20 Cortisol AM Sample 10.6 ug/dL 01/09/19 07:09 Urine Color DARK YELLOW 01/08/19 13:35 Urine Clarity CLEAR (CLEAR) 01/08/19 13:35 Urine pH 6.0 PH (5.0-7.5) 01/08/19 13:35 Ur Specific [place] 1.020 (1.002-1.030) 01/08/19 13:35 Urine Protein NEGATIVE mg/dL (NEGATIVE) 01/08/19 13:35 Urine Glucose (UA) NEGATIVE mg/dL (NEGATIVE) 01/08/19 13:35 Urine Ketones NEGATIVE mg/dL (NEGATIVE) 01/08/19 13:35 Urine Occult Blood MODERATE (NEGATIVE) H 01/08/19 13:35 Urine Nitrite NEGATIVE (NEGATIVE) 01/08/19 13:35 Urine Bilirubin NEGATIVE (NEGATIVE) 01/08/19 13:35 Urine Urobilinogen 2 E.U./dL (NORMAL) H 01/08/19 13:35 Ur Leukocyte Esterase NEGATIVE (NEGATIVE) 01/08/19 13:35 Urine RBC 0-5 /HPF (0-5) 01/08/19 13:35 Urine WBC 0-3 /HPF (0-5) 01/08/19 13:35 Ur Squamous Epith Cells RARE Squamous (<= Few) 01/08/19 13:35 Urine Bacteria Few /HPF (None Seen) 01/08/19 13:35 Ur Microscopic Review INDICATED 01/08/19 13:35 Urine Culture Comments NOT INDICATED 01/08/19 13:35 Urine HCG, Qual NEGATIVE 01/08/19 13:35 Urine Opiates Screen NEGATIVE (NEGATIVE) 01/08/19 13:35 Ur Oxycodone Screen NEGATIVE (NEGATIVE) 01/08/19 13:35 Urine Methadone Screen NEGATIVE (NEGATIVE) 01/08/19 13:35 Ur Propoxyphene Screen NEGATIVE (NEGATIVE) 01/08/19 13:35 Ur Barbiturates Screen NEGATIVE (NEGATIVE) 01/08/19 13:35 Ur Tricyclics Screen NEGATIVE (NEGATIVE) 01/08/19 13:35 Ur Phencyclidine Scrn NEGATIVE (NEGATIVE) 01/08/19 13:35 Ur Amphetamine Screen NEGATIVE (NEGATIVE) 01/08/19 13:35 U Methamphetamines Scrn NEGATIVE (NEGATIVE) 01/08/19 13:35 U Benzodiazepines Scrn NEGATIVE (NEGATIVE) 01/08/19 13:35 Urine Cocaine Screen NEGATIVE (NEGATIVE) 01/08/19 13:35 U Cannabinoids Screen NEGATIVE (NEGATIVE) 01/08/19 13:35 Sepsis Event Note (H) - Evaluation Current Stage of Sepsis: Ruled out ABX Reporting Has patient been on IV antibiotics over the past 48 hours?: No Current Medications - Current Medications Current Medications: Active Medications Famotidine (Pepcid) 20 mg IVP BID [facility] Last Admin: 01/09/19 08:57 Dose: 20 mg Sodium Chloride (Normal Saline 0.9%) 1,000 mls @ 100 mls/hr IV .Q10H [facility] Levothyroxine Sodium (Synthroid) 100 mcg PO QDAC [facility] Morphine Sulfate (Morphine (Carpuject)) 2 mg IVP Q2HR PRN PRN Reason: Pain 8 to 10 Ondansetron HCl (Zofran Inj) 4 mg IVP BID PRN PRN Reason: Nausea / Vomiting Prochlorperazine Edisylate (Compazine Inj) 10 mg IVP Q6HR PRN PRN Reason: Nausea / Vomiting Sodium Chloride (Normal Saline Flush 0.9%) 10 ml IVP PRN PRN PRN Reason: NEEDED PER PROVIDER ORDERS Last Admin: 01/08/19 21:31 Dose: 10 ml Sodium Chloride (Normal Saline Flush 0.9%) 10 ml IVP 0100,0900,1700 [facility] Last Admin: 01/09/19 08:57 Dose: 10 ml Diclofenac Sodium [Voltaren] 1 applic TOP QID PRN 01/09/19 Levothyroxine [Synthroid] 88 mcg PO QDAC 01/09/19 Multivitamin [Multiple Vitamins] 1 each PO DAILY 01/09/19 Potassium Chloride 20 meq PO DAILY 01/09/19
[2019-01-09] MEDS: SODIUM CHLORIDE 0.9% 1,000 ML IV SCH ×2 (14:10→22:58)
[2019-01-10] MEDS: SODIUM CHLORIDE FLUSH 0.9% 10 ML SYRINGE IVP SCH ×2 (00:39→09:02)
[2019-01-10 05:24] LABS: BASOPHILS % (AUTO) 0.8 %; EOSINOPHILS # (AUTO) 0.2 10^3/uL (0.0-0.7); EOSINOPHILS % (AUTO) 5.2 %; HGB - HEMOGLOBIN 12.3 g/dL (12.0-16.0); LYMPHOCYTES # (AUTO) 1.2 10^3/uL (1.5-3.5); LYMPHOCYTES % (AUTO) 33.6 %; MEAN CORPUSCULAR HGB CONC 31.9 g/dL (32.0-36.0); MEAN CORPUSCULAR VOLUME 94.1 fL (81.0-99.0); MEAN PLATELET VOLUME 9.5 fL (7.9-10.8); MONOCYTES # (AUTO) 0.5 10^3/uL (0.0-1.0); MONOCYTES % (AUTO) 12.4 %; NEUTROPHILS # (AUTO) 1.7 10^3/uL (1.5-6.6); NEUTROPHILS % (AUTO) 47.7 %; PLT - PLATELET COUNT 150 10^3/uL (130-450); RED CELL DISTRIBUTION WIDTH 13.5 % (12.0-15.0); WHITE BLOOD COUNT 3.6 x10^3/uL (4.8-10.8)
[2019-01-10 06:03] LABS: ALBUMIN 3.5 g/dL (3.2-5.5); ALBUMIN/GLOBULIN RATIO 1.3 (1.0-2.2); BILIRUBIN,TOTAL 2.7 mg/dL (0.2-1.0); CALCIUM 9.1 mg/dL (8.5-10.3); CREATININE 0.7 mg/dL (0.4-1.0); TOTAL PROTEIN 6.2 g/dL (6.7-8.2)
[2019-01-10] MEDS ORDERED: LEVOTHYROXINE 100 MCG TABLET PO SCH (07:00)
[2019-01-10] MEDS ORDERED: IOVERSOL 320 100 ML VIAL IVP ONE ×2 (08:04→09:55)
[2019-01-10] MEDS: SODIUM CHLORIDE 0.9% 1,000 ML IV SCH (09:06)
[2019-01-10] MEDS: FAMOTIDINE 20 MG/2 ML VIAL IVP SCH (09:06)
--- NOTE | 2019-01-10 09:58 | CT Report ---
Reason: elevated liver enzyme, abdominal discomfortable Procedure Date: 01/10/2019 Accession Number: [id number] / [id number] Procedure: CT - Abdomen/Pelvis W CPT Code: Final Report FULL RESULT: EXAM: CT ABDOMEN AND PELVIS EXAM DATE: 01/10/2019 08:21 AM. CLINICAL HISTORY: Elevated liver enzyme, abdominal discomfortable. COMPARISONS: CT IVP 07/12/2017 1:02 PM ABDOMEN LIMITED 01/08/2019 2:18 PM. TECHNIQUE: Routine helical CT imaging was performed through the abdomen and pelvis. IV contrast: 100 cc Optiray 320. Enteric contrast: No. Reconstructions: Coronal and sagittal. In accordance with CT protocol optimization, one or more of the following dose reduction techniques were utilized for this exam: automated exposure control, adjustment of mA and/or KV based on patient size, or use of iterative reconstructive technique. FINDINGS: Lung Bases: Unremarkable. Liver: Normal. No masses. Gallbladder/Bile Ducts: Unremarkable. Spleen: Normal. Pancreas: Normal. Adrenal Glands: Normal. Kidneys: The right kidney is normal. No mass or hydronephrosis. The left kidney is slightly small with areas of cortical thinning in the superior pole, unchanged compared to 07/12/2017. There is a simple cortical cyst at the inferior pole measuring 17 x 13 mm (series 3 image 39), previously 16 x 14 mm. No hydronephrosis or solid renal mass identified. Peritoneal Cavity/Bowel: No free air or adenopathy. There is a small amount of free fluid in the pelvis. No masses or acute inflammatory process. No dilated loops of small bowel or abnormal colonic stool burden. The appendix is well visualized and normal. Pelvic Organs: Normal. The bladder and visualized pelvic organs are within normal limits. Vasculature: No aneurysms or other significant abnormality. Bones: No acute osseous abnormality or bone lesions. There are mild degenerative disk changes of the lower thoracic and lumbar spine. Other: None. IMPRESSION: 1. Left renal cortical thinning, as seen on the prior CT, suggestive of scarring. No solid renal mass, hydronephrosis, or other significant renal abnormality. 2. Small amount of free fluid in the pelvis. 3. Otherwise unremarkable CT of the abdomen and pelvis. RADIA
--- NOTE | 2019-01-10 11:41 | Discharge Plan ---
Discharge Plan Problem Reviewed?: Yes Disposition: Home, Self Care Condition: Stable Prescriptions: Levothyroxine [Synthroid] 100 mcg PO QDAC #15 tablet Diet: Regular Activity Restrictions: Activity as Tolerated Shower Restrictions: No (fall precaution) Instruction Topics: Levothyroxine tablets Health Concerns: elevated liver enzyme Plan of Treatment: The special weapons and tactics officer in was reached. Here is the suggestions: reduced your fatty food intake and follow quality assurance coach's instructions, hold supplement herbals, followup your PCP on next week Monday 8:30am appointment to have CMP test to monitor liver enzyme, and followup all around gear machine operator as out-pt Care Goals: stabilization and improvement of your medical conditions Assessment: assessment as the above Additional Instructions or Follow Up instructions: you may followup your PCP on next week Monday01/14/19, 8:30am appointment to have CMP test to monitor liver enzyme, and followup all around gear machine operator as out- pt. Should your symptoms return or worsen, you may present ER or call 911 for help. No Smoking: If you smoke, Please STOP! Call for help. Follow-up with: Elo Elizalde ARNP [Primary Care Provider] -
--- NOTE | 2019-01-10 11:53 | DISCHARGE SUMMARY ---
Discharge Summary Admit Date: 01/08/19 Discharge Date: 01/10/19 Discharging Provider: WATTS Primary Care Provider: Elo Vasquez Condition at Discharge: Stable Discharge Disposition: Home, Self Care Discharge Facility Name: home - DIAGNOSES Admission Diagnoses: (1) Hepatitis (2) Hypothyroidism Discharge Diagnoses with Status of Each Condition: (1) Transaminitis pt tolerate low fat diet without nausea, vomiting. abdominal pain is resolved but still has some discomfort after eating. Pt's liver enzyme is gradually improved and running down but is still high. SW help pt make appointment on 01/14/19 8:30am to see her PCP and monitor her liver enzyme. I called metallurgical specialist, who recommend pt can be d/c home today, followup PCP and local GI closely monitor pt. pt had US and CT of abdomen which are unremarkable. hospital's MRI is not working for doing MRI of abdomen. (2) Hypothyroidism stable. pt has elevated TSH, but has normal Free T4, pt's home levothyroxine dosage is increased to 100 mcg from 88 mcg. followup PCP to continue management. - HPI History of Present Illness: refer from Dr. Phillips's HPI on 12/08/18 Patient is a 48 y/o female with History of hypothyroidism taking synthroid, who presented to the ED with complain of epigastric pain. Her symptoms started on 4 days ago with a general feeling of fatigue/weakness and aching all over. The epigastric pain and nausea came on the following day. She was unable to eat or carry out her day's activities as a result. 3 days after onset, she started having radiation to the right side and back. She denied chest pain, dyspnea or fever. In the ED she was found to have an AST of 1304, ALT 3816, Alk Phos 163 and TBili of 2.2. As a result she was presented for admission for further work up. She denies any recent travel or injuries. She rarely takes tylenol but took 650mg 3 days ago. She denies IV drug use. She drinks socially. She does not take any herbal supplements. Her daughter had a "stomach virus" recently. She has been on a keto-diet (no carbs, high fat and protein) for the past 4 months. However on she had a piece of cake. She also ate deer meat on the same day. It was a deer they had hunted down with a bow ad arrow. The day after Halloween she had pizza. The rest of her history was unremarkable - HOSPITAL COURSE Hospital Course: pt was admitted for nausea, vomiting, and abdominal pain. pt was found to have significant elevated liver enzyme. US and CT of abdomen are unremarkable. hospital's MRI is not working for doing MRI of abdomen. after treatment in hospital, pt can tolerate diet without nausea, vomiting, abdominal pain. The detail hospital course is as the below. (1) Transaminitis pt tolerate low fat diet without nausea, vomiting. abdominal pain is resolved but still has some discomfort after eating. Pt's liver enzyme is gradually improved and running down but is still high. SW help pt make appointment on 01/14/19 8:30am to see her PCP and monitor her liver enzyme. I called metallurgical specialist, who recommend pt can be d/c home today, followup PCP and local GI closely monitor pt. pt had US and CT of abdomen which are unremarkable. hospital's MRI is not working for doing MRI of abdomen. (2) Hypothyroidism stable. pt has elevated TSH, but has normal Free T4, pt's home levothyroxine dosage is increased to 100 mcg from 88 mcg. followup PCP to continue management. - ALLERGIES Allergies/Adverse Reactions: Allergies Allergy/AdvReac Type Severity Reaction Status Date / Time No Known Drug Allergies Allergy Verified 07/25/16 21:17 - MEDICATIONS Home Medications: Ambulatory Orders Medication Instructions Recorded Confirmed Multivitamin [Multiple Vitamins] 1 each PO DAILY 01/09/19 01/09/19 Levothyroxine [Synthroid] 100 mcg PO QDAC #15 tablet 01/10/19 - PHYSICAL EXAM AT DISCHARGE General Appearance: positive: No acute distress, Alert. negative: Lethargic Eyes Bilateral: positive: Normal inspection, PERRL, No lid inflammation, Conjunctivae nml ENT: positive: ENT inspection nml, Pharynx nml, No signs of dehydration. negative: Purulent nasal drainage Neck: positive: Nml inspection, Thyroid nml, No JVD, Trachea midline. negative: Thyromegaly, Lymphadenopathy (R), Lymphadenopathy (L), Stiff neck, Tracheal deviation Respiratory: positive: Chest non-tender, No respiratory distress, Breath sounds nml. negative: Wheezes, Rales, Rhonchi Cardiovascular: positive: Regular rate & rhythm, No murmur, No gallop. negati ve: Irregularly irregular, Extrasystoles, Tachycardia, Bradycardia, JVD present, Systolic murmur, Diastolic murmur Peripheral Pulses: positive: 2+ Abdomen: positive: Non-tender, No organomegaly, Nml bowel sounds, No distention. negative: Tenderness, Guarding, Rebound Back: positive: Nml inspection. negative: CVA tenderness (R), CVA tenderness (L) Skin: positive: Color nml, No rash, Warm, Dry. negative: Cyanosis, Diaphoresis, Pallor Extremities: positive: Non-tender, Full ROM, Nml appearance. negative: Calf tenderness, Alicia's sign/cords Neurologic/Psychiatric: positive: Oriented x3, Motor nml, Sensation nml, Mood/affect nml. negative: Weakness, Sensory loss, Facial droop, Slurred/abnml speech, Depressed mood/affect - LABS Result Diagrams: 01/10/19 05:00 01/10/19 05:00 - SEPSIS Current Stage of Sepsis: Ruled out - FOLLOW UP Follow Up: The metallurgical specialist in was reached. Here is the suggestions: reduced your fatty food intake and follow biofuels plant operations engineer's instructions, hold supplement herbals, followup your PCP on next week Monday 8:30am appointment to have CMP test to monitor liver enzyme, and followup test engineer as out-pt. you may followup your PCP on next week Monday01/14/19, 8:30am appointment to have CMP test to monitor liver enzyme, and followup test engineer as out- pt. Should your symptoms return or worsen, you may present ER or call 911 for help. - TIME SPENT Time Spent in Discharge (Minutes): 50
[2019-01-10 12:07] VITALS: BP 94/68
[2019-01-11 07:31] LABS: HEPATITIS A IGM NON-REACTIVE (NON-REACTIVE); HEPATITIS B SURFACE ANTIGEN NON-REACTIVE (NON-REACTIVE); HEPATITIS C ANTIBODY NON-REACTIVE (NON-REACTIVE)
[2019-01-11 16:11] LABS: ALBUMIN 3.8 g/dL (3.8-4.8); ALPHA 1 GLOBULIN 0.3 g/dL (0.2-0.3); ALPHA 2 GLOBULIN 0.5 g/dL (0.5-0.9); BETA 1 GLOBULIN 0.4 g/dL (0.4-0.6); BETA 2 GLOBULIN 0.3 g/dL (0.2-0.5)
[2019-01-14 10:05] LABS: ANA SCREEN Positive
== END 2019-01-10 14:40 | disposition home or self-care (01) | DRG 443 ==
LOC: ED 13:18 → MS2 17:16
PROVIDERS: ADMIT Internal Medicine; ATTEND Nurse Practitioner Gerontology
DX: K75.9 Inflammatory liver disease, unspecified (principal); E03.9 Hypothyroidism, unspecified; K76.0 Fatty (change of) liver, not elsewhere classified; K44.9 Diaphragmatic hernia without obstruction or gangrene; F17.200 Nicotine dependence, unspecified, uncomplicated; Z79.899 Other long term (current) drug therapy; Z90.710 Acquired absence of both cervix and uterus; Z98.51 Tubal ligation status
CPT/HCPCS: 36415; 74177; 76705; 80053; 80061; 80074; 80306; 81001; 81025; 81599; 82024; 82390; 82533; 82550; 82784; 82787; 82977; 83540; 83690; 84155; 84165; 84439; 84443; 84466; 84481; 85025; 85610; 86038; 93005; 99284; A9270; Q9967; 81003; 83721; 87086

== ENCOUNTER 2019-01-14 10:04 | Outpatient (CLI) | payer OTHER ==
[2019-01-14 11:31] LABS: ALBUMIN 4.4 g/dL (3.2-5.5); ALBUMIN/GLOBULIN RATIO 1.3 (1.0-2.2); CALCIUM 9.5 mg/dL (8.5-10.3); CREATININE 0.8 mg/dL (0.4-1.0); TOTAL PROTEIN 7.8 g/dL (6.7-8.2)
== END 2019-01-14 10:05 | disposition home or self-care (01) ==
LOC: LAB 10:04
PROVIDERS: ATTEND Nurse Practitioner Gerontology
DX: R74.0 Nonspecific elevation of levels of transaminase and lactic acid dehydrogenase [LDH] (principal)
CPT/HCPCS: 36415; 80053

== ENCOUNTER 2023-01-05 10:52 | Outpatient (CLI) | payer OTHER ==
--- NOTE | 2023-01-05 11:44 | Sleep Patient Instructions ---
Sleep Center Visit Summary - Patient Visit Information Reason for Visit: Initial consultation - Patient Instructions Instructions Attached: Sleep Study, Sleep Study Home Monitor Additional Instructions: You will be completing a sleep study, either an in-lab polysomnography (PSG) or home sleep study (HST). You will follow-up in the sleep care office after the sleep study is completed to hear the results and talk about therapy, if needed. You will be called by our office staff to schedule this appointment, but you may contact us with any questions. - Clinic Information Contact: [facility] [address] [place] [address] [email or web address] T: [phone]
--- NOTE | 2023-01-05 11:51 | SLEEP CARE CONSULTATION ---
Information from patient questionnaire entered by Lenard Bledsoe. I have reviewed and concur with the information entered by Lenard Bledsoe. This document represents the service I personally performed and the decisions made by me, Elinor Salcido ARNP. History of Present Illness Service Date and Time: 01/05/2023 1052 Reason for Visit: New patient, Previously diagnosed sleep apnea Chief Complaint: reports: Unrefreshed sleep, Snoring, Excessive daytime sleepiness, Fatigue, Frequent awakenings at night Date of Onset: A handful of years - 5 - 10 years Usual bedtime: 8 PM Time it takes to fall asleep: Anywhere from 30 min to 2 hours Snores at night: Yes Observed to quit breathing while asleep: Yes Sleeps alone due to snoring: No Number of times waking at night: 3 to 4 Reasons for waking at night: reports: Choking, Snoring, Gasping for air, Bathroom, Other (Unknown reason) Toss, Turn, or Twitch while sleeping: Yes Recalls having dreams: No Usually gets out of bed at: 4 AM to 7 AM Feels refreshed in the morning: No Morning headache: Yes (2 times a week; A few hours later) Sleepy or fatigued during the day: Yes Ever fallen asleep while driving: No Takes day naps: No Dreams during day naps: No Prior sleep studies: Yes Year and Where: 01/13/2021 - [facility] Additional HPI information: TERESA FERNANDEZ was previously diagnosed to have mild, AHI 14.4, obstructive sleep apnea-hypopnea syndrome in sleep study dated 01/13/2021 through [facility] and comes in today to establish care. She is not currently using a CPAP and does not have one that she can use. Patient states she was originally seen and diagnosed at [facility] and they set her up with a machine through [facility]. She had many difficulties with the machine and with the DME. [facility] sleep office closed and that she transferred over to [facility]. They were trying to get her into a new machine since the one she had was not working right and they did replace it at one point. She got rid of the original machine she'd had but then because of complications had to give the machine other CPAP back that she had gotten through [facility] and [facility]. She no longer has a CPAP and has not been on any therapy. She needs get process restarted to be re-qualified for CPAP. - Parasomnia Symptoms Ever been unable to move upon waking from sleep: No Walks in sleep: No Talks in sleep: No Ever acted out dreams in sleep: No Ever felt weak in the knees when startled or emotional: No Bothered by creepy, crawly, restless sensations in legs: Yes Problems with memory or concentration: Yes (both) Subjective Initial [place] Sleepiness Scale score: 9 (in 2022) Past Medical History Past Medical History: reports: Arthritis, Hypothyroidism, Anxiety, Depression, GERD, Other (Autoimmune hepatitis (AIH), liver disease since 2019, chronic pyelopnephritis, born with kidney disease) Social History 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 Patient is and lives in [place]. Have you smoked in the past 12 months: No Cigarettes per day (20/pack): 10 Years of smokin Quit date: 2018 Smoking Pack Years: 10.0 Alcohol use: Yes Alcohol amount and frequency: Rarely - one drink very rare occasions Caffeine use: Yes Caffeine amount and frequency: 1-2 cups coffee each day Family History Family history of sleep disordered breathing: No Allergies and Home Medications Known drug allergies: Yes (Ibuprofen, Diclofenac, NSAIDS) Drug allergies reviewed: Yes Home medication list reviewed: Yes Allergy and home medication list: Allergies No Known Drug Allergies Allergy (Verified 01/04/23 11:27) Medications: Levothyroxine 88 mcg daily Pantoprazole 40 mg daily Azanthioprine 100 mg daily Bupropion 150 mg daily Vitamin D3 2000 IU daily Review of Systems Weight gain over past 5 years: 60 Cardiovascular: reports: palpitations Gastrointestinal: reports: heartburn, other (Erosive reflux esophagitis and GERD, and ulcers in esophagus) Urinary: reports: other (Chronic pyelonephritis) Neurological: reports: headaches Psychiatric: reports: anxiety, depression Ear/Nose/Throat: denies: tonsillectomy Endocrine: reports: thyroid disease, sluggishness (/tired), too hot or cold, increased appetite, unexplained weakness Musculoskeletal: reports: joint pain (/stiffness), neck pain, back pain, joint swelling, muscle pain or cramping, other (Osteopenia, osteoarthritis and degener ative) Physical Exam Vital signs obtained and entered by: Elinor Davey NP Blood Pressure: 114/71 Cuff size: wrist (left) Heart Rate: 71 O2 Saturation: 96 Height: 5 ft 6 in Weight: 233 lb 6.4 oz Body Mass Index: 37.6 BMI Classification: Obese Neck circumference: 15 Mouth and throat: narrow oropharynx Soft palate: long Hard palate: normal Uvula: normal Uvula visualization: 25% Mallampati Class III Tongue: enlarged in size with teeth grover on lateral edges Tonsils: small Neck: normal w/o lymphadenopathy or thyromegaly Heart: regular rate and rhythm Lungs: clear bilaterally Impression and Plan 1. Suspected Obstructive Sleep Apnea-Hypopnea Syndrome, as previously diagnosed and as suggested by a history of loud and irregular snoring, observed cessation of breath while asleep, gasping or choking in sleep, morning headache, frequent awakening during the night, unrefreshed sleep, cognitive impairment, and excessive daytime sleepiness. She has not been using her CPAP and we need to re- qualifiy her for CPAP. I recommend proceeding to polysomnography to confirm the diagnosis and to assess severity. I obtained agreement to proceed. The pathophysiology of obstructive sleep apnea-hypopnea syndrome was discussed with the patient and health risks of cardiovascular and cerebrovascular disease if not treated. 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 Patient agreed to plan. * Schedule polysomnography. * Avoid long distance driving or driving when feeling sleepy. * Avoid alcohol, sedative and muscle relaxant around bedtime. * Attempt to lose weight. * Review instructions provided by trained office staff on how to prepare for the sleep study. * Return for follow-up after sleep study completed. Counseling Topics: Weight loss health impact Plan: PSG/HST Visit Type: In Office Time Spent with Patient (minutes): 41 Provider Statement: I spent 100% of the Face to Face Visit with the patient with greater than 50% spent counseling the patient and coordination of care.
[2023-01-05 11:59] VITALS: BP 114/71; O2SAT 96
== END 2023-01-05 10:53 | disposition home or self-care (01) ==
LOC: SC 10:52
PROVIDERS: ATTEND Nurse Practitioner Family
DX: R06.83 Snoring (principal); G47.8 Other sleep disorders; R06.81 Apnea, not elsewhere classified; R51.9 Headache, unspecified; G47.10 Hypersomnia, unspecified; R53.83 Other fatigue; F32.A Depression, unspecified; Z87.891 Personal history of nicotine dependence; E66.9 Obesity, unspecified; Z68.37 Body mass index [BMI] 37.0-37.9, adult
CPT/HCPCS: 99203; 99212

== ENCOUNTER 2023-02-01 19:34 | Outpatient (CLI) | payer OTHER | END 2023-02-01 19:35 | disposition home or self-care (01) | LOC: SC 19:34 | PROVIDERS: ATTEND Nurse Practitioner Family | DX: G47.33 Obstructive sleep apnea (adult) (pediatric) (principal); G47.61 Periodic limb movement disorder; F32.A Depression, unspecified | CPT/HCPCS: 95810 ==

== ENCOUNTER 2023-02-24 08:45 | Outpatient (CLI) | payer OTHER ==
--- NOTE | 2023-02-24 09:04 | Sleep Patient Instructions ---
Sleep Center Visit Summary - Patient Visit Information Reason for Visit: Sleep study followup - Patient Instructions Additional Instructions: You are being started on CPAP therapy with pressure setting at 4-15 cmH2O. You will need to call the sleep care office to set up your follow up once you have your APAP machine and we will schedule a visit to check compliance and response to therapy at that time. You may call the office with any concerns about pressure feeling too low or too much for adjustment, if needed. You should contact DME supplier for any questions or concerns about mask or equipment. Please call office to schedule a follow up appointment in the sleep care office one month after obtaining new device. - Clinic Information Contact: [facility] [address] [place] [address] [email or web address] T: [phone]
--- NOTE | 2023-02-24 09:09 | SLEEP CARE CONSULTATION ---
Information from patient questionnaire entered by Yvonne Garcia. I have reviewed and concur with the information entered by Yvonne Garcia. This document represents the service I personally performed and the decisions made by me, Elinor Salcido ARNP. History of Present Illness Service Date and Time: 02/24/2023 0845 Initial [place] Sleepiness Scale score: 9 (in 2022) Current [place] Sleepiness Scale score: 10 (02/24/23) Additional HPI information: TERESA BEYER returns for follow up and results of the recently performed polysomnography. The sleep study showed mild obstructive sleep apnea with an average AHI of 5.2 and [place] oxygen saturation of 89%. I explained the pathophysiology behind obstructive sleep apnea. We then spent quite a bit of time discussing different treatment options. For mild obstructive sleep apnea, surgery and oral appliance are alternatives to nasal CPAP therapy but in moderate or severe cases, nasal CPAP is the most effective and reliable treatment. Because apnea is primarily in supine position, then positional management therapy could be effective. Methods discussed such as positioning with pillows, using a T-shirt with tennis balls in the back or commercial products that have a pillow format on back to prevent supine sleep. I reviewed the impact of weight changes on sleep apnea and strongly recommended losing weight. After some discussion, the patient opted to go with the nasal CPAP therapy. Nasal autoCPAP set at 4-15 cmH20 will be ordered with rationale explained. A manual titration study will be ordered if unable to find optimal pressure with office adjustments. I explained how CPAP machine works and what to expect when using the machine. Using CPAP every night in order to get used to it was emphasized. Patient advised to put CPAP mask on before getting into bed so as not to fall asleep without CPAP. The patient was instructed to call the CPAP supplier to discuss any mechanical problem that may occur. If the mask given is uncomfortable or is difficult to keep on through the night even with adjustment, contact the CPAP supplier as many will replace with another mask style if notified before 30 days. If snoring or perceives is not getting enough air or too much air from the machine, notify this office. Patient counseled not drink alcohol less than 4 hours before bedtime as it can increase snoring and apnea. Patient was cautioned about risks of drowsy driving until sleepiness symptoms resolve. Patient denies drowsy driving. Sleep Study - Results Type of Sleep Study: Polysomnography (COMPLETED 02/01/23) Prior sleep studies: Yes Year and Where: 01/13/2021 - [facility] Polysomnography/Home Sleep Study results: IMPRESSION: The quality of the study is good. The patient had slightly reduced sleep efficiency due to frequent awakenings in the first half of the night. Despite moderate sleep fragmentation, the sleep architecture was normal. Respiratory monitoring showed mild obstructive sleep apnea-hypopnea (AHI = 5.2) associated with frequent arousals, oxyhemoglobin desaturation and minimal hypoxia ([place] oxygen saturation of 89%). The respiratory events occurred almost exclusively during supine sleep (supine AHI = 18.3; non- supine = 3.97). Snore was light to loud in intensity. There was moderate periodic leg movement of sleep contributing to the sleep fragmentation. Cardiac rhythm was normal sinus rhythm without significant arrhythmia. No abnormal behavior (parasomnia) observed during the night. Allergies and Home Medications Known drug allergies: No Drug allergies reviewed: Yes Home medication list reviewed: Yes (no changes) Allergy and home medication list: Allergies No Known Drug Allergies Allergy (Verified 02/23/23 10:26) Review of Systems Review of systems same as previous: Yes (NO CHANGE) Physical Exam Vital signs obtained and entered by: YVONNE Whalen MA Blood Pressure: 132/85 (LEFT ARM) Cuff size: regular Heart Rate: 71 O2 Saturation: 97 Height: 5 ft 6 in Weight: 231 lb 6.4 oz Body Mass Index: 37.3 BMI Classification: Obese Impression and Plan 1. Obstructive Sleep Apnea-Hypopnea Syndrome, mild, with lowest oxygen saturation of 89%. Obviously this is the cause of the patients symptoms of unrefreshed sleep, and excessive daytime sleepiness. Patient has used CPAP's in the past and states she is happy to return to CPAP therapy. She states she has bulging disks in her back and is most comfortable sleeping on her back. She has moderate obstructions when sleeping on her back and that is why she would like to be back on a CPAP. She could not tolerate positional therapy. Positive pressure therapy could benefit anxiety, depression and gastric reflux. As mentioned above, the patient will be started on nasal autoCPAP therapy with pressure set at 4-15 cmH2O. Compliance guidelines also reviewed. A copy of compliance guidelines will be given for reference at check out. Because the apnea is more severe supine, I instructed to avoid sleeping supine using pillow positioning until able to start CPAP use. 2. Periodic limb movement, moderate, that did not fragment patients sleep. Periodic limb movement of sleep (PLMS) is characterized by episodes of repetitive limb movements that occur during sleep and usually involve the lower limbs. The etiology is unknown. Sleep hygiene methods can also improve sleep as well as lifestyle changes such as regular exercise. Patient was advised that no treatment is needed at this time. If symptoms increase, then further evaluation is indicated. 3. Obesity, unspecified. Currently patients BMI is 37.3. Obesity increases the risk of apnea, CPAP pressure requirements and overall health risks especially cardiovascular and diabetes. Thus patient is advised to lose weight. * Nasal auto CPAP therapy, pressure at 4-15 cm H2O. * Attempt to lose weight. * Avoid alcohol consumption near bedtime. * Avoid supine sleep until using CPAP. * The patient is again cautioned about driving until sleepiness completely resolves. * Return one month after CPAP obtained. I will assess response to therapy and compliance at that time. Counseling Topics: Sleeping position, Weight loss health impact Prescriptions: Auto CPAP Plan: Compliance visit with new device Visit Type: In Office Time Spent with Patient (minutes): 20 Provider Statement: I spent 100% of the Face to Face Visit with the patient with greater than 50% spent counseling the patient and coordination of care.
[2023-02-24 09:14] VITALS: BP 132/85; O2SAT 97
== END 2023-02-24 08:46 | disposition home or self-care (01) ==
LOC: SC 08:45
PROVIDERS: ATTEND Nurse Practitioner Family
DX: G47.33 Obstructive sleep apnea (adult) (pediatric) (principal); G47.61 Periodic limb movement disorder; E66.9 Obesity, unspecified; Z68.37 Body mass index [BMI] 37.0-37.9, adult
CPT/HCPCS: 99212; 99213

== ENCOUNTER 2023-05-05 08:58 | Outpatient (CLI) | payer OTHER ==
--- NOTE | 2023-05-05 09:19 | Sleep Patient Instructions ---
Sleep Center Visit Summary - Patient Visit Information Reason for Visit: First compliance for PAP therapy - Patient Instructions Additional Instructions: You were here for follow up of CPAP therapy. You will be continued on CPAP therapy with pressure at 6-8 cmH2O. Please let us know if the pressure change is uncomfortable and we can make further adjustments of the pressure. You should follow up with sleep care in 1-2 months. You may contact us sooner for any questions or concerns. - Clinic Information Contact: [facility] [address] [place] [address] [email or web address] T: [phone]
--- NOTE | 2023-05-05 09:23 | SLEEP CARE CONSULTATION ---
Information from patient questionnaire entered by Noble Garcia. I have reviewed and concur with the information entered by Noble Garcia. This document represents the service I personally performed and the decisions made by me, Elinor Salcido ARNP. History of Present Illness Service Date and Time: 05/05/2023 0858 Previous diagnosis: Mild, Obstructive Sleep Apnea-Hypopnea Syndrome AHI: 5.2 (01/2023) Reason for follow up: first compliance, annual Equipment type: CPAP (RESMED AIRSENSE 11 AUTOSET SET UP 05/04/22) Equipment obtained from: Other ([facility]; getting supplies) Mask style: Nasal Mask brand: Respironics (Dreamwear) Backup mask available: No (will keep old mask when replaced) Prior sleep studies: Yes Year and Where: 01/13/2021 - [facility] Type of Sleep Study: Polysomnography (COMPLETED 02/01/23) HPI additional information: TERESA BEYER was diagnosed to have mild, AHI 5.2, obstructive sleep apnea-hypopnea syndrome and returned today for CPAP therapy first compliance/annual follow-up. Sleep Study - Results Type of Sleep Study: Polysomnography (COMPLETED 02/01/23) Prior sleep studies: Yes Year and Where: 01/13/2021 - [facility] CPAP Compliance Data - Data Reviewed with Patient Average duration of nightly device use: 5 HRS 24 MINS Compliance rate %: 80 (04/03/23-05/02/23; /30 days used) Current pressure setting (cmH2O): 4-15 (median 6, avg 8.2, max 9.2) Average residual AHI: 0.1 Central apnea: 0 Obstructive apnea: 0 Hypopnea: 0 Average large leak: 0.1 L/min Subjective Missed days of use due to: reports: travel Patient concerns: denies: aerophagia, mask discomfort, air blowing in eyes, mask leak noise, condensation in mask/hose, nasal congestion, dry mouth, nose, throat, epistaxis Observed to snore while using device: No Current pressure setting perceived as: comfortable On therapy, patient: reports: sleeping better, awakening more refreshed, more rested overall. denies: drowsiness while driving Initial [place] Sleepiness Scale score: 9 (in 2022) Current [place] Sleepiness Scale score: 4 (05/05/23) Allergies and Home Medications Known drug allergies: No Drug allergies reviewed: Yes Home medication list reviewed: Yes (no changes) Allergy and home medication list: Allergies No Known Drug Allergies Allergy (Verified 05/03/23 09:50) Review of Systems Review of systems same as previous: Yes (NO CHANGE) Physical Exam Vital signs obtained and entered by: NOBLE Whalen MA Blood Pressure: 130/82 (LEFT ARM) Cuff size: regular Heart Rate: 63 O2 Saturation: 98 Height: 5 ft 6 in Weight: 239 lb 9.6 oz Body Mass Index: 38.7 BMI Classification: Obese Impression and Plan 1. Obstructive Sleep Apnea-Hypopnea Syndrome, mild, with good treatment compliance and good apnea control. On CPAP therapy, the patient has better sleep quality and is more rested overall. Patient has significant improvement of their sleep apnea and is satisfied with current CPAP therapy. Patient denies problems with oral dryness, nasal congestion, epistaxis, skin irritation or aerophagia. Patient's apnea severity and rationale for treatment to reduce apnea, improve sleep quality and reduce cardiovascular and cerebrovascular events was reviewed. I also reviewed the benefit of consistent device use of CPAP for gastric reflux, depression/anxiety. 2. Obesity, unspecified. Currently patients BMI is 38.7. Obesity increases the risk of apnea, CPAP pressure requirements and overall health risks especially cardiovascular and diabetes. Thus patient is advised to lose weight. * Change auto CPAP pressure to 6-8 cmH2O * Update supply prescription * Notify me if snoring with mask or feeling that the pressure is too much or too little * Attempt to lose weight * Call this office if any problems using CPAP * Return for follow up in 1-2 months, or sooner if concerns arise Adjust device pressure to (cmH2O): 6-8 Counseling Topics: Spare mask, Weight loss health impact Follow up with Sleep Care in: 1-2 months Visit Type: In Office Time Spent with Patient (minutes): 20 Provider Statement: I spent 100% of the Face to Face Visit with the patient with greater than 50% spent counseling the patient and coordination of care.
[2023-05-05 09:32] VITALS: BP 130/82; O2SAT 98
== END 2023-05-05 08:59 | disposition home or self-care (01) ==
LOC: SC 08:58
PROVIDERS: ATTEND Nurse Practitioner Family
DX: G47.33 Obstructive sleep apnea (adult) (pediatric) (principal); E66.9 Obesity, unspecified; Z68.38 Body mass index [BMI] 38.0-38.9, adult
CPT/HCPCS: 99212; 99213

== ENCOUNTER 2023-06-16 08:47 | Outpatient (CLI) | payer OTHER ==
--- NOTE | 2023-06-16 09:12 | Sleep Patient Instructions ---
Sleep Center Visit Summary - Patient Visit Information Reason for Visit: 6-week follow-up - Patient Instructions Additional Instructions: You were here for follow up of CPAP therapy. You will be continued on CPAP therapy with pressure at 6-8 cmH2O. You should follow up with sleep care in 12 months. You may contact us sooner for any questions or concerns. - Clinic Information Contact: [facility] [address] [place] [address] [email or web address] T: [phone]
--- NOTE | 2023-06-16 09:16 | SLEEP CARE CONSULTATION ---
Information from patient questionnaire entered by Yvonne Garcia. I have reviewed and concur with the information entered by Yvonne Garcia. This document represents the service I personally performed and the decisions made by , Elinor Salcido ARNP. History of Present Illness Service Date and Time: 06/16/2023 0847 Previous diagnosis: Mild, Obstructive Sleep Apnea-Hypopnea Syndrome AHI: 5.2 (01/2023) Reason for follow up: other (6 WEEK F/U) Equipment type: CPAP (RESMED AIRSENSE 11 AUTOSET SET UP 05/04/22) Equipment obtained from: Other ([facility]) Mask style: Nasal Mask brand: Respironics (Dreamwear) Backup mask available: No (needs supplies) Last cushion change: 1 month Prior sleep studies: Yes Year and Where: 01/13/2021 - [facility] Type of Sleep Study: Polysomnography (COMPLETED 02/01/23) HPI additional information: TERESA BEYER was diagnosed to have mild, AHI 5.2, obstructive sleep apnea-hypopnea syndrome and returned today for CPAP therapy six week pressure change follow-up. Sleep Study - Results Type of Sleep Study: Polysomnography (COMPLETED 02/01/23) Prior sleep studies: Yes Year and Where: 01/13/2021 - [facility] CPAP Compliance Data - Data Reviewed with Patient Average duration of nightly device use: 4 HRS 50 MINS Compliance rate %: 75 (05/02/23-06/14/23; 40/44 days used) Current pressure setting (cmH2O): 6-8 Average residual AHI: 0.2 Central apnea: 0 Obstructive apnea: 0.2 Average large leak: 0 L/min Subjective Missed days of use due to: reports: other (forgot, fell asleep without mask on) Patient concerns: denies: aerophagia, mask discomfort, air blowing in eyes, mask leak noise, condensation in mask/hose, nasal congestion, dry mouth, nose, throat, epistaxis Observed to snore while using device: No Current pressure setting perceived as: comfortable On therapy, patient: reports: sleeping better, awakening more refreshed, being more awake and alert during the day, more rested overall. denies: drowsiness while driving Initial Albright Sleepiness Scale score: 9 (in 2022) Current Albright Sleepiness Scale score: 3 Allergies and Home Medications Known drug allergies: No Drug allergies reviewed: Yes Home medication list reviewed: Yes (no changes) Allergy and home medication list: Allergies No Known Drug Allergies Allergy (Verified 06/15/23 11:16) Review of Systems Review of systems same as previous: Yes (no changes) Physical Exam Vital signs obtained and entered by: ELINOR NANCE-Marlee Blood Pressure: 123/81 Cuff size: long (left arm) Heart Rate: 68 O2 Saturation: 97 Height: 5 ft 6 in Weight: 231 lb Weight change since last visit: 8 lb loss Body Mass Index: 37.3 BMI Classification: Obese Impression and Plan 1. Obstructive Sleep Apnea-Hypopnea Syndrome, mild, with good treatment compliance and good apnea control. On CPAP therapy, the patient has better sleep quality and is more rested overall. Patient states everything is working better with the new machine and she likes her mask. She would like to be able to sleep longer but is getting quality sleep. Patient has significant improvement of their sleep apnea and is satisfied with current CPAP therapy. Patient denies problems with oral dryness, nasal congestion, epistaxis, skin irritation or aerophagia. Patient's apnea severity and rationale for treatment to reduce apnea, improve sleep quality and reduce cardiovascular and cerebrovascular events was reviewed. I also reviewed the benefit of consistent device use of CPAP for gastric reflux, depression/anxiety. 2. Obesity, unspecified. Currently patients BMI is 37.3. She has lost weight. Obesity increases the risk of apnea, CPAP pressure requirements and overall health risks especially cardiovascular and diabetes. Thus patient is advised to continue to try to lose weight. * Continue auto CPAP pressure at 6-8 cmH2O * Notify me if snoring with mask or feeling that the pressure is too much or too little * Attempt to lose weight * Call this office if any problems using CPAP * Return for follow up in 12 months, or sooner if concerns arise Counseling Topics: Spare mask, Weight loss health impact Follow up with Sleep Care in: 1 year Visit Type: In Office Time Spent with Patient (minutes): 15 Provider Statement: I spent 100% of the Face to Face Visit with the patient with greater than 50% spent counseling the patient and coordination of care.
[2023-06-16 09:23] VITALS: BP 123/81; O2SAT 97
== END 2023-06-16 08:48 | disposition home or self-care (01) ==
LOC: SC 08:47
PROVIDERS: ATTEND Nurse Practitioner Family
DX: G47.33 Obstructive sleep apnea (adult) (pediatric) (principal); E66.9 Obesity, unspecified; Z68.37 Body mass index [BMI] 37.0-37.9, adult
CPT/HCPCS: 99212